=== PATIENT | male | born 1985 | race Caucasian/White ===

== ENCOUNTER 2017-11-30 15:00 | Emergency (ER) | payer OTHER ==
[~2017-11-30] VITALS: Ht 170.2 cm; Wt 74.8 kg
[2017-11-30] MEDS ORDERED: WELLBUTRIN (15:24)
[2017-11-30] MEDS ORDERED: PROZAC (15:24)
[2017-11-30] MEDS ORDERED: QUET25TA3 (15:24)
[2017-11-30] MEDS ORDERED: PRAZOSIN (15:24)
[2017-11-30] MEDS ORDERED: SUBOXONE (15:24)
--- NOTE | 2017-11-30 15:26 | NUR ---
DR RUBIN AT THE BEDSIDE FOR MSE.
[2017-11-30 16:37] LABS: *BLOOD, URINE NEGATIVE (NEGATIVE); *CLARITY,URINE SLIGHTLY CLOUDY (CLEAR); *COLOR,URINE DARK YELLOW (YELLOW); *KETONES,URINE 1+ (NEGATIVE); *PROTEIN,URINE 2+ (NEGATIVE); *UROBILINOGEN,URINE 0.2 E.U./dl (NORMAL); LEUKOCYTE ESTERASE ,URINE NEGATIVE (NEGATIVE); NITRITE, URINE NEGATIVE (NEGATIVE); UGLUCOSE NEGATIVE (NEGATIVE)
--- NOTE | 2017-11-30 16:43 | NUR ---
Patient discharged to home in stable conditon. Written and verbal after care instructions given. Patient verbalizes understanding of instructions.
[2017-11-30 16:44] VITALS: BP 134/89
[2017-11-30 16:45] LABS: *BILIRUBIN,URIN 2+ (NEGATIVE)
[2017-11-30 16:46] LABS: BACTERIA,URINE RARE /HPF (NONE SEEN); CALCIUM OXALATE CRYSTALS,UR FEW /HPF (NONE SEEN); RBC,URINE 0-3 /HPF (0-3); SQUAMOUS EPITHELIAL CELL,UR FEW /HPF (NONE SEEN)
== END 2017-11-30 16:45 | disposition home or self-care (01) ==
LOC: ER 15:03
DX: S61.252A Open bite of right middle finger without damage to nail, initial encounter (principal); R30.0 Dysuria; I10 Essential (primary) hypertension; Z88.8 Allergy status to other drugs, medicaments and biological substances; Z79.899 Other long term (current) drug therapy; W54.0XXA Bitten by dog, initial encounter; Y93.89 Activity, other specified; Y92.89 Other specified places as the place of occurrence of the external cause; Y99.8 Other external cause status
CPT/HCPCS: A4663